=== PATIENT | male | born 1940 | race Caucasian/White ===

== ENCOUNTER 2024-12-25 14:10 | Outpatient (CLI) | payer OTHER, SELFPAY | END 2024-12-25 14:11 | disposition home or self-care (01) | LOC: NFLDREF 12-26 20:53 | PROVIDERS: Visit Provider Family Medicine | DX: Z00.00 Encounter for general adult medical examination without abnormal findings (principal) | CPT/HCPCS: 80053 ==

== ENCOUNTER 2025-01-12 14:28 | Outpatient (CLI) | payer OTHER, SELFPAY | END 2025-01-12 14:29 | disposition home or self-care (01) | LOC: FRMREF 14:28 | PROVIDERS: PCP Family Medicine; Visit Provider Family Medicine | DX: Z12.39 Encounter for other screening for malignant neoplasm of breast (principal); R41.3 Other amnesia | CPT/HCPCS: 82565; 82607; 84132; 84295; 84443 ==